=== PATIENT | male | born 1945 | race Caucasian/White ===

== ENCOUNTER → 2016-10-21 | Day surgery (SDC) | payer OTHER ==
[2016-10-12 12:36] VITALS: Ht 180.3 cm; Wt 86.4 kg
[~2016-10-21] VITALS: Ht 180.3 cm; Wt 86.4 kg
[~2016-10-21] MED LIST: AMT50 PO; CALC1CHW43 PO; FENTANYL CITRATE INJ 50 MCG/1 ML 2 ML VIAL ONE; FERR1TAB23 PO; FLUT0.15; LIDOCAINE HCL 2% 2 ML VIAL (20MG/ML) ONE; LOVA20TA4 PO; PRLSR20 PO; PROPOFOL IV EMULSION 10 MG/ML 20 ML VIAL IV ONE; SUMA50TA15 PO; TIMO1SOL6 OPB
--- NOTE | 2016-10-21 15:52 | Endo History and Physical ---
History & Physical Date of Service: Oct 21, 2016. Chief Complaint: anemia Referring Physician: Dr Marie History of Present Illness 71 yo CM who presents for EGD secondary to anemia. Past Surgical History Hx Cardiac Surgery: No Hx Internal Defibrillator: No Hx Pacemaker: No Hx Abdominal Surgery: No Hx of Implantable Prosthesis: No Hx Post-Op Nausea and Vomiting: No Hx Cancer Surgery: Yes (SKIN CANCER REMOVALS) Hx Thoracic Surgery: No Hx Orthopedic: No Hx Urinary Tract Surgery: No Family History IBD Social History Smoking Status: Never Smoker Hx Substance Use: No Hx Alcohol Use: No Allergies Coded Allergies: No Known Allergies (Unverified , 10/12/16) Current Medications Reported Home Medications Medications Dose Route/Sig Max Daily Dose Days Date Category Imitrex (Sumatriptan Succinate) 50 Mg Tab 50 Mg PO UD PRN 10/12/16 Reported Tums E-X 750 (Calcium Carbonate (Antacid)) 750 Mg Chw 1 Tab PO UD PRN 10/12/16 Reported Iron (Ferrous Sulfate) 325 Mg Tab 325 Mg PO BID 08/05/16 Reported Flonase Allergy Relief (Fluticasone Propionate (Nasal)) 50 Mcg/Act Spr 1 [place] NA DAILY PRN 06/22/16 Reported Betimol 0.25% Oph (Timolol Hemihydrate 0.25% Oph) 0.25 % Liza 1 Drop OPB QAM 06/22/16 Reported Mevacor (Lovastatin) 20 Mg Tab 20 Mg PO QAM 06/22/16 Reported Prilosec (Omeprazole) 20 Mg Capcr 20 Mg PO QAM 06/22/16 Reported Elavil (Amitriptyline HCl) 50 Mg Tab 0.5 Tab PO HS 11/25/07 Reported Vital Signs Weight (Kilograms): 86.36 Height (Feet): 5 Height (Inches): 11 Date Time Temp Pulse Resp B/P Pulse Ox O2 Delivery O2 Flow Rate FiO2 10/21/16 15:03 36.7 67 20 144/89 96 Room Air Physical Exam General Appearance: WD/WN, no apparent distress Respiratory/Chest: Auscultation: breath sounds normal Cardiovascular: Heart Auscultation: RRR Abdomen: Bowel Sounds: normal Inspection & Palpation: soft, non-distended, no tenderness, guarding & rebound Assessment and Plan Assessment: 71 yo CM who presents for EGD secondary to anemia. Plan: Proceed with EGD
--- NOTE | 2016-10-21 16:15 | Anesthesiology Progress Note ---
Anesthesia Post Op Note Date & Time Oct 21, 2016 at 16:14 Vital Signs Pain Intensity: 0 Vital Signs Past 12 Hours Date Time Temp Pulse Resp B/P Pulse Ox O2 Delivery O2 Flow Rate FiO2 10/21/16 16:05 63 16 103/61 95 Room Air 10/21/16 15:03 36.7 67 20 144/89 96 Room Air Notes Mental Status: alert / awake / arousable, participated in evaluation Pt Amnestic to Procedure: Yes Nausea / Vomiting: adequately controlled Pain: adequately controlled Airway Patency, RR, SpO2: stable & adequate BP & HR: stable & adequate Hydration State: stable & adequate Anesthetic Complications: no major complications apparent
[2016-10-21 16:34] VITALS: BP 121/82; PULSE 59; O2SAT 97
--- NOTE | 2016-10-21 16:40 | Discharge Instructions ---
Endoscopy Patient Instructions Date / Procedure(s) Performed Oct 21, 2016. EGD Allergy Information Coded Allergies: No Known Allergies (Unverified , 10/12/16) Discharge Date / Findings Oct 21, 2016. Gastritis s/p biopsies Hiatal hernia Biopsies of esophagus Provider Instructions Activity Restrictions - No exercising or heavy lifting for 24 hours. - Do not drink alcohol the day of the procedure. - Do not drive a car or operate machinery until the day after the procedure. - Do not make any important decisions or sign important papers in 24 hours after the procedure. Following Day: - Return to full activity which may include returning to work/school. Diet Start your diet with liquids and light foods (jello, soup, juice, toast). Then eat your usual diet if not nauseated. Treatment For Common After Affects For mild abdominal pain, bloating, or excessive gas: - Rest - Eat lightly - Lie on right side Follow-Up Information Follow-up with Dr Marie as scheduled Anesthesia Information What You Should Know You have had a procedure that required some medicine to reduce anxiety and discomfort. This treatment is called moderate sedation. After receiving the treatment, you may be sleepy, but you will be able to breathe on your own. The effects of the treatment may last for several hours. Follow these instructions along with Activity/Diet recommendations noted above: * Do NOT do anything where dizziness or clumsiness would be dangerous. * Rest quietly at home today, then you can be up and about tomorrow. * Have a responsible person stay with you the rest of today. * You may have had an I.V. today. If so, you may take the dressing off later today. Recommendations Call your doctor if: * Trouble breathing * Continuous vomiting for more than 24 hours * Temperature above 101 degrees * Severe abdominal pain or bloating * Pain not relieved by pain medicine ordered * There is increased drainage or redness from any incision * A large amount of rectal bleeding greater than 2-3 tablespoons. (If you had a polyp/s removed or have hemorrhoids, a small amount of blood - from the rectum is to be expected.) * You have any unanswered questions or concerns. IN THE EVENT OF A SERIOUS EMERGENCY, GO TO THE NEAREST EMERGENCY ROOM Your discharge instructions were prepared by provider Renato Bonner. Patient Instructions Signature Page [place] Su Patient (or Guardian) Signature/Date: I have read and understand the instructions given to me by my caregivers. Caregiver/RN/Doctor Signature/Date: The above-named patient and/or guardian has received patient instructions on this date. + Original Patient Signature Page (only) stays with chart. Please make copy for patient.
--- NOTE | 2016-10-21 16:56 | GI REPORT ---
Procedure Date: 10/21/2016 3:46 PM Procedure: Upper GI endoscopy Indications: Iron deficiency anemia Medicines: Monitored Anesthesia Care Complications: No immediate complications. Estimated Blood Loss: Estimated blood loss: none. Procedure: Pre-Anesthesia Assessment: - Prior to the procedure, a History and Physical was performed, and patient medications and allergies were reviewed. The patient's tolerance of previous anesthesia was also reviewed. The risks and benefits of the procedure and the sedation options and risks were discussed with the patient. All questions were answered, and informed consent was obtained. Prior Anticoagulants: The patient has taken no previous anticoagulant or antiplatelet agents. ASA Grade Assessment: II - A patient with mild systemic disease. After reviewing the risks and benefits, the patient was deemed in satisfactory condition to undergo the procedure. After obtaining informed consent, the endoscope was passed under direct vision. Throughout the procedure, the patient's blood pressure, pulse, and oxygen saturations were monitored continuously. The scope was introduced through the mouth, and advanced to the second part of duodenum. The upper GI endoscopy was accomplished without difficulty. The patient tolerated the procedure well. Findings: The Z-line was irregular. Biopsies were taken with a cold forceps for histology. A small hiatus hernia was present. Localized mild inflammation characterized by erythema was found in the gastric antrum. Biopsies were taken with a cold forceps for histology. The examined duodenum was normal. Impression: - Z-line irregular. Biopsied. - Small hiatus hernia. - Gastritis. Biopsied. - Normal examined duodenum. Recommendation: - Resume previous diet. - Continue present medications. - Await pathology results. - Return to primary care physician as previously scheduled. Renato Bonner, DO 10/21/2016 4:55:39 PM This report has been signed electronically. Note Initiated On: 10/21/2016 3:46 PM I attest to the content of the Intraoperative Record and orders documented therein, exceptions below
== END | disposition home or self-care (01) ==
LOC: C.GI 14:19
PROVIDERS: ATTEND Physician Assistant Medical
DX: D50.9 Iron deficiency anemia, unspecified (principal); K29.70 Gastritis, unspecified, without bleeding; K44.9 Diaphragmatic hernia without obstruction or gangrene; Z83.79 Family history of other diseases of the digestive system

== ENCOUNTER → 2016-10-28 | Outpatient (CLI) | payer OTHER ==
[~2016-10-28] MED LIST changes: -FENTANYL CITRATE INJ 50 MCG/1 ML 2 ML VIAL ONE; -LIDOCAINE HCL 2% 2 ML VIAL (20MG/ML) ONE; -PROPOFOL IV EMULSION 10 MG/ML 20 ML VIAL IV ONE
[2016-10-28 12:51] LABS: BASO % 0.6 %; BASO ABS # 0.04 K/uL (0-0.2); COMPLETE YES; EOS % 3.1 %; FERRITIN 21.9 ng/ml (8.0-388.0); IG% 0.1 %; LYMPH % 31.2 %; LYMPH ABS # 2.25 K/uL (1.2-3.4); MEAN CELL VOLUME 85.3 fL (80-100); MEAN CORPUSCULAR HEMOGLOBIN 29.6 pg (25-34); MEAN CORPUSCULAR HGB CONC 34.8 g/dl (32-36); MEAN PLATELET VOLUME 10.8 fL (7.4-10.4); MONO % 11.4 %; NEUT % 53.6 %; PLATELET COUNT 216 K/uL (130-400); RED BLOOD COUNT 4.69 M/uL (4.7-6.1); WHITE BLOOD COUNT 7.21 K/uL (4.8-10.8)
== END | disposition home or self-care (01) ==
LOC: C.LABBFT 08:25
PROVIDERS: ATTEND Physician Assistant Medical
DX: D64.9 Anemia, unspecified (principal)

== ENCOUNTER → 2016-11-02 | Outpatient (CLI) | payer OTHER ==
[2016-11-02 17:51] LABS: ALT/SGPT 25 U/L (12-78); BLOOD UREA NITROGEN 29 mg/dl (7-18); CALCIUM 9.1 mg/dl (8.5-10.1); CARBON DIOXIDE 28 mmol/L (21-32); CHLORIDE 107 mmol/L (98-107); CHOLESTEROL 144 mg/dl (0-200); GLUCOSE 65 mg/dl (70-99); POTASSIUM 3.5 mmol/L (3.5-5.1); SODIUM 143 mmol/L (136-145); TRIGLYCERIDES 136 mg/dl (0-150); VERY LOW DENSITY LIPOPROT CALC 27 mg/dl
[2016-11-02 17:54] LABS: ALB/GLOB RATIO 1.1 (0.9-2); ALKALINE PHOSPHATASE 62 U/L (45-117); AST/SGOT 21 U/L (15-37); CHOLESTEROL/HDL RATIO 2.6; HDL CHOLESTEROL 55 mg/dl; LDL CHOLESTEROL CALCULATED 62 mg/dl
[2016-11-02 18:20] LABS: ESTIMATED AVERAGE GLUCOSE 128 mg/dl; HA1C FLAG Normal (Normal)
--- NOTE | 2016-11-08 10:29 | CODING QUERY MEDICAL NECESSITY ---
SUPPORTING DIAGNOSIS NEEDED A supporting diagnosis is required for the test/procedure performed on this patient in order for us to be reimbursed by the patient's insurance. Please provide a supporting diagnosis for the following test/procedure listed below next to the test name along with your signature. *If there is no additional diagnosis for this patient that would support the following test/procedure please document that below next to the test/procedure. Test(s)/Procedure(s) that require a supporting diagnosis: * GLYCATED HEMOGLOBIN DIAGNOSIS: * DOS: 11/02/16 Provider Signature: Date: Thank you Ghada [facility] Information Management Once completed, please kindly fax back to [phone] For questions please call [phone]
== END | disposition home or self-care (01) ==
LOC: C.LABBFT 11:35
PROVIDERS: ATTEND Physician Assistant Medical
DX: E78.5 Hyperlipidemia, unspecified (principal); E11.9 Type 2 diabetes mellitus without complications

== ENCOUNTER → 2017-01-17 | Outpatient (CLI) | payer OTHER ==
[2017-01-17 12:46] LABS: HEMATOCRIT 35.6 % (42-52); MEAN CELL VOLUME 88.3 fL (80-100); MEAN CORPUSCULAR HEMOGLOBIN 30.8 pg (25-34); MEAN CORPUSCULAR HGB CONC 34.8 g/dl (32-36); PLATELET COUNT 214 K/uL (130-400); RED BLOOD COUNT 4.03 M/uL (4.7-6.1); WHITE BLOOD COUNT 6.57 K/uL (4.8-10.8)
[2017-01-17 12:49] LABS: BASO ABS # 0.06 K/uL (0-0.2); BASOPHIL % 0.9 % (0-2); COMPLETE YES; EOSINOPHIL % 3.5 %; LYMPH ABS # 1.33 K/uL (1.2-3.4); LYMPHOCYTE % 20.2 %; NEUTROPHILS % 69.3 %
== END | disposition home or self-care (01) ==
LOC: C.LABBFT 08:41
PROVIDERS: ATTEND Physician Assistant Medical
DX: D64.9 Anemia, unspecified (principal)

== ENCOUNTER → 2017-05-10 | Outpatient (CLI) | payer OTHER ==
[2017-05-10 12:29] LABS: BASO % 0.4 %; BASO ABS # 0.03 K/uL (0-0.2); COMPLETE YES; EOS % 2.5 %; HEMATOCRIT 43.3 % (42-52); IG% 0.3 %; LYMPH % 28.6 %; LYMPH ABS # 2.17 K/uL (1.2-3.4); MEAN CELL VOLUME 88.7 fL (80-100); MEAN CORPUSCULAR HEMOGLOBIN 30.3 pg (25-34); MEAN CORPUSCULAR HGB CONC 34.2 g/dl (32-36); MEAN PLATELET VOLUME 11.4 fL (7.4-10.4); MONO % 7.2 %; PLATELET COUNT 213 K/uL (130-400); RED BLOOD COUNT 4.88 M/uL (4.7-6.1)
[2017-05-10 13:17] LABS: TOTAL IRON BINDING CAPACITY 309 mcg/dl (250-450)
== END | disposition home or self-care (01) ==
LOC: C.LABBFT 07:48
PROVIDERS: ATTEND Internal Medicine
DX: D64.9 Anemia, unspecified (principal)

== ENCOUNTER → 2017-09-16 | Outpatient (CLI) | payer OTHER | END | disposition home or self-care (01) | LOC: C.LABBFT 10:20 | PROVIDERS: ATTEND Physician Assistant Medical | DX: R39.9 Unspecified symptoms and signs involving the genitourinary system (principal) ==

== ENCOUNTER → 2017-11-22 | Outpatient (CLI) | payer OTHER ==
[2017-11-22 16:46] LABS: BASO % 0.3 %; BASO ABS # 0.02 K/uL (0-0.2); EOS % 1.4 %; HEMATOCRIT 41.9 % (42-52); HEMOGLOBIN 14.6 g/dL (14.0-18.0); IG# 0.02 K/uL (0.00-0.02); LYMPH % 28.5 %; MEAN CORPUSCULAR HGB CONC 34.8 g/dl (32-36); MEAN PLATELET VOLUME 10.9 fL (7.4-10.4); MONO % 9.6 %; MONO ABS # 0.71 K/uL (0.11-0.59); NEUT % 59.9 %; NEUT ABS # 4.43 K/uL (1.4-6.5); PLATELET COUNT 219 K/uL (130-400); RED CELL DISTRIBUTION WIDTH CV 12.6 % (11.5-14.5); RED CELL DISTRIBUTION WIDTH SD 41.2 fL (36.4-46.3); WHITE BLOOD COUNT 7.38 K/uL (4.8-10.8)
[2017-11-22 17:05] LABS: ALBUMIN 3.8 gm/dl (3.4-5.0); ALT/SGPT 21 U/L (12-78); AST/SGOT 18 U/L (15-37); BLOOD UREA NITROGEN 16 mg/dl (7-18); CARBON DIOXIDE 27 mmol/L (21-32); CREATININE 1.19 mg/dl (0.60-1.40); GLUCOSE 99 mg/dl (70-99); POTASSIUM 4.2 mmol/L (3.5-5.1); SODIUM 140 mmol/L (136-145)
[2017-11-22 17:07] LABS: ALKALINE PHOSPHATASE 59 U/L (45-117); CHOLESTEROL 130 mg/dl (0-200); LDL CHOLESTEROL CALCULATED 55 mg/dl; TOTAL PROTEIN 7.2 gm/dl (6.4-8.2)
[2017-11-22 17:18] LABS: CREATININE RANDOM URINE 56.9 mg/dl
[2017-11-23 06:22] LABS: HEMOGLOBIN A1C 6.3 % (4.5-5.6)
== END | disposition home or self-care (01) ==
LOC: C.LABBFT 15:37
PROVIDERS: ATTEND Internal Medicine
DX: E11.9 Type 2 diabetes mellitus without complications (principal); E78.5 Hyperlipidemia, unspecified; D64.9 Anemia, unspecified

== ENCOUNTER → 2017-11-25 | Outpatient (CLI) | payer OTHER ==
--- NOTE | 2017-11-25 11:55 | DIAGNOSTIC IMAGING REPORT ---
CHEST 2 VIEWS ROUTINE HISTORY: R05 Cough [id number] COMPARISON: None. FINDINGS: The lungs are clear. Cardiac silhouette is normal in size. No pleural effusions. No pneumothorax. IMPRESSION: No acute process. Electronically signed by: Rod Friedman M.D. 11/25/2017 11:54 AM Dictated Date/Time: 11/25/2017 11:51 AM
== END | disposition home or self-care (01) ==
LOC: C.RAD1850 11:45
PROVIDERS: ATTEND Internal Medicine
DX: R05 Cough (principal)

== ENCOUNTER 2020-03-01 11:39 | Observation (INO) ==
[2020-03-01] MEDS ORDERED: SODIUM CHLORIDE 0.9% 500 ML IV SCH (12:15)
--- NOTE | 2020-03-01 12:21 | Emergency Department Note ---
Impression & Plan TIA (transient ischemic attack), Dizziness ED Provider Note NAME: SUMIT GALE AGE: 74 SEX: M : 1945 ARRIVES VIA: Walk-In INFORMANT: Patient, ED PROVIDER(S): Jass Pierson DO CHIEF COMPLAINT: Weakness HPI: The patient is a 74-year-old male who presented to the emergency department for an evaluation of weakness. The patient states that he has had intermittent episodes of having difficulty ambulating when he goes from sitting to standing. He states that when he drives a long period and then gets out of the car to go to the bathroom he notices that he has been having dizziness upon standing this seems to have changed though over the last few days as the patient is now noticing that he is having unilateral weakness specifically on his right side. This is happened approximately 5 times over the last 1 to 2 days. The most recent one was this morning. He notices no headache. He denies having any chest pain or difficulty breathing. He denies having any nausea or vomiting. He denies having any swelling in the legs or pain in the legs. He has a follow- up appoint with his doctor on Tuesday for the symptoms. He states he has been compliant with his medications. His significant other presented to the emergency department with him and states that he was mowing the grass today when he started noticing he was having difficulty speaking. When he came into the house his states that he was drooling and his speech was very slurred. The symptoms have completely resolved at this time. ROS: See above HPI for pertinent positives & negatives. A total of 10 systems reviewed and were otherwise negative. PAST MEDICAL HISTORY: See Below PAST SURGICAL HISTORY: See Below FAMILY HISTORY: See Below SOCIAL HISTORY: See Below HOME MEDICATIONS: See Below ALLERGIES: See Below VITALS: See Below PHYSICAL EXAMINATION: GENERAL: Patient is awake alert in no acute distress patient is resting comfortably and showing no signs of anxiety EYES: The conjunctivae are clear. The pupils are round and reactive. EARS, NOSE, MOUTH AND THROAT: The nose is without any evidence of any deformity. Mucous membranes are moist. NECK: The neck is nontender and supple. RESPIRATORY: Normal respiratory effort is noted there is no evidence of wheezing rhonchi or rales CARDIOVASCULAR: Regular rate and rhythm noted there no murmurs rubs or gallops normal S1 normal S2. GASTROINTESTINAL: The abdomen is soft. Abdomen is nontender. MUSCULOSKELETAL/EXTREMITIES: There is no evidence of gross deformity full range of motion is noted in the hips and shoulders. SKIN: There is no obvious evidence of any rash. There are no petechiae, pallor or cyanosis noted. NEUROLOGIC: Patient is awake alert and oriented x3 strength is symmetric patellar reflexes are 2+ bilaterally MEDICAL DECISION MAKING: The patient is a 74-year-old male who presented to the emergency department for an evaluation of right-sided weakness. The right-sided weakness appears to be intermittent. He was having some problems with dizziness over the last few months and had a cardiac work-up which did not reveal a cause. The patient presents today because of 5 episodes of right-sided weakness which are intermittent and worsening on standing. Upon arrival to the emergency depar tment the patient is asymptomatic. I discussed the patient's laboratory and radiographic studies with him. He was found to have an abnormal CT of the brain as well as angiography of the brain which revealed abnormalities in the vertebral artery on the left. It is possible this may be related to the patient's presentation. He was treated with aspirin in the emergency department. His neurologic status did not decline while he was in the emergency department. I discussed the patient's laboratory and radiographic studies with the on-call [facility] neurologist as well as the [facility] hospitalist. They will evaluate the patient for further management and disposition. The patient was agreeable to this evaluation. Triage Nursing notes reviewed. Prior medical records reviewed Vital Signs: reviewed and remarkable for bradycardia Differential diagnosis: Infection, dehydration, metabolic abnormality, hypo/hyperglycemia, electrolyte disturbance, anemia, hypoxia, cardiac sources, intracerebral event, toxicologic, neurologic, as well as other pathologies. ER treatment provided: See below Diagnostics interpreted by me: ECG: EKG was obtained in the emergency department. My interpretation is normal sinus rhythm at 67 bpm. There is no ectopy. There is no acute ST segment abnormalities noted. This was compared to a tracing from October [id number]. No significant changes were noted. Cardiac Monitoring: An order was placed for continuous cardiac monitoring. The monitor shows a rate of 88 with sinus rhythm. Laboratory studies: As stated above and show below. Imaging studies: See below Consultation(s): 1400: I discussed this case with the [facility] neurologist, Dr. Junior. At this time she recommends aspirin loading and continued stroke work-up with MRI MRA of the brain and further stroke work-up including echocardiogram. ED COURSE: Procedures: none PDMP:reviewed and no issues Critical Care: None Past Med/Surg History Medical History Allergic rhinitis (Acute) Dilated aortic root (Acute) Gastroesophageal reflux disease (Acute) Hyperlipidemia (Acute) Lower back pain (Acute) Migraine headache (Acute) Mitral valve insufficiency and aortic valve insufficiency (Acute) Surgical History History of cataract surgery History of colonoscopy Hx of LASIK History of corneal lasik on CCD Family History Father Heart disease Stroke syndrome Mother Alzheimer disease Brother Parkinsons disease Social History Smoking Status: Never smoker Hx Alcohol Use: No Hx Substance Use: No Preferred Language: Tuvaluan Communication Ability: Effective marital status: Current Living Situation: Spouse current occupational status: employed current occupation: [id number] for [employer] Safe at Home: Yes Seatbelt Use: always Allergies Allergies Allergy/AdvReac Type Severity Reaction Status Date / Time No Known Allergies Allergy Mild Unverified 03/01/20 13:15 Home Meds Home Medications Medication Instructions Recorded Confirmed ferrous sulfate 325 mg (65 mg See Rx Instructions PO .COMPLEX 02/14/19 03/01/20 iron) tablet tab lovastatin 20 mg tablet 20 mg PO .COMPLEX tab 09/02/19 03/01/20 fluticasone propionate 50 2 sprays INTNAS DAILY PRN gm 09/24/19 03/01/20 mcg/actuation nasal spray,suspension Previous Rx's Medication Instructions Recorded blood sugar diagnostic #100 ea 02/14/19 lancets 33 gauge #100 ea 02/14/19 famotidine 20 mg tablet 20 mg PO BID PRN #180 tab 09/24/19 Results & Data (ED) Vital Signs Vital Signs - 24 hr 03/01/20 11:43 03/01/20 12:27 03/01/20 12:28 Temperature 36.4 C L Temperature Source Oral Pulse Rate - Lying 60 Pulse Rate - Sitting 68 Pulse Rate - Standing 65 Pulse Rate 69 69 59 L Pulse Rate from SpO2 Sensor Pulse Rhythm Regular Regular Pulse Strength Normal Respiratory Rate 16 16 21 Respiratory Effort / Characteristics Non-Labored Respiratory Depth Normal Respiratory Pattern Regular Blood Pressure - Lying 159/93 H Blood Pressure - Sitting 141/104 H Blood Pressure- Standing 134/87 Blood Pressure 144/88 H 159/93 H Blood Pressure Mean 106 118 Blood Pressure Position Sitting Pulse Oximetry 98 98 Oxygen Delivery Method Room Air Room Air Sepsis Recent Fever Within 48 Hours No Sepsis New/Unexplained Change in Mental Status N/A Sepsis Action Taken by Nursing No Action Required 03/01/20 12:29 03/01/20 12:30 03/01/20 13:30 Temperature Temperature Source Pulse Rate - Lying Pulse Rate - Sitting Pulse Rate - Standing Pulse Rate 63 66 53 L Pulse Rate from SpO2 Sensor 53 L Pulse Rhythm Pulse Strength Respiratory Rate 19 18 18 Respiratory Effort / Characteristics Respiratory Depth Respiratory Pattern Blood Pressure - Lying Blood Pressure - Sitting Blood Pressure- Standing Blood Pressure 141/104 H 134/87 134/85 Blood Pressure Mean 116 95 112 Blood Pressure Position Pulse Oximetry 99 Oxygen Delivery Method Sepsis Recent Fever Within 48 Hours Sepsis New/Unexplained Change in Mental Status Sepsis Action Taken by [facility] Medications Current Medication List: was personally reviewed by me Laboratory Data Result diagrams: 03/01/20 12:17 03/01/20 12:17 Lab Results 03/01/20 03/01/20 03/01/20 Range/Units 12:17 12:17 12:17 WBC 7.48 (4.8-10.8) K/uL RBC 4.22 L (4.7-6.1) M/uL Hgb 13.1 L (14.0-18.0) g/dL POC Hgb (14.0-18.0) g/dl Hct 37.6 L (42-52) % POC Hct (42-52) % MCV 89.1 (80-100) fL MCH 31.0 (25-34) pg MCHC 34.8 (32-36) g/dL RDW Std Deviation 41.2 (36.4-46.3) fL RDW Coeff of Cas 12.8 (11.5-14.5) % Plt Count 189 (130-400) K/uL MPV 10.5 H (7.4-10.4) fL Immature Gran % (Auto) 0.1 % Neut % (Auto) 67.0 % Lymph % (Auto) 22.1 % [place] % (Auto) 8.4 % Eos % (Auto) 2.1 % Baso % (Auto) 0.3 % Neut # (Auto) 5.01 (1.4-6.5) K/uL Lymph # (Auto) 1.65 (1.2-3.4) K/uL [place] # (Auto) 0.63 H (0.11-0.59) K/uL Eos # (Auto) 0.16 (0-0.5) K/uL Baso # (Auto) 0.02 (0-0.2) K/uL Immature Gran # (Auto) 0.01 (0.00-0.02) K/uL PT 10.9 (9.0-12.0) Seconds INR 1.0 (0.9-1.1) APTT 25.1 (21.0-31.0) Seconds PTT Ratio 0.9 POC Sodium (135-144) mmol/L Sodium 142 (136-145) mmol/L POC Potassium (3.3-5.0) mmol/L Potassium 4.0 (3.5-5.1) mmol/L POC Chloride (101-112) mmol/L Chloride 111 H (98-107) mmol/L Carbon Dioxide 25 (21-32) mmol/L POC Total CO2 (24-31) mmol/L Anion Gap 6.0 (3-11) POC Anion Gap (16-25) mmol/L POC BUN (7-18) mg/dl BUN 27 H (7-18) mg/dl Creatinine 1.09 (0.6-1.4) mg/dl POC Creatinine (0.6-1.3) mg/dl Est Cr Clr Drug Dosing 64.3 ml/min Est GFR ( Amer) 77.6 Est GFR (Non-Af Amer) 67.0 BUN/Creatinine Ratio 24.9 H (10-20) Glucose 106 H (70-99) mg/dl POC Glucose (other) (70-99) mg/dl Calcium 8.2 L (8.5-10.1) mg/dl POC Ioniz Calcium Santos (1.12-1.32) mmol/l Magnesium 2.1 (1.8-2.4) mg/dl Total Bilirubin 0.5 (0.2-1) mg/dl AST 14 L (15-37) U/L ALT 20 (12-78) U/L Alkaline Phosphatase 56 (45-117) U/L Troponin I < 0.015 (0-0.045) ng/ml Total Protein 6.6 (6.4-8.2) gm/dl Albumin 3.6 (3.4-5.0) gm/dl Globulin 3.0 (2.5-4.0) gm/dl Albumin/Globulin Ratio 1.2 (0.9-2) TSH 0.832 (0.300-4.500) uIu/ml Urine Color Urine Appearance (Clear) Urine pH (4.5-7.5) Ur Specific [place] (1.000-1.030) Urine Protein (Negative) Urine Glucose (UA) (Negative) Urine Ketones (Negative) Urine Blood (Negative) Urine Nitrite (Negative) Urine Bilirubin (Negative) Urine Urobilinogen (Negative) Ur Leukocyte Esterase (Negative) 03/01/20 03/01/20 Range/Units 12:17 12:27 WBC (4.8-10.8) K/uL RBC (4.7-6.1) M/uL Hgb (14.0-18.0) g/dL POC Hgb 12.2 L (14.0-18.0) g/dl Hct (42-52) % POC Hct 36 L (42-52) % MCV (80-100) fL MCH (25-34) pg MCHC (32-36) g/dL RDW Std Deviation (36.4-46.3) fL RDW Coeff of Cas (11.5-14.5) % Plt Count (130-400) K/uL MPV (7.4-10.4) fL Immature Gran % (Auto) % Neut % (Auto) % Lymph % (Auto) % [place] % (Auto) % Eos % (Auto) % Baso % (Auto) % Neut # (Auto) (1.4-6.5) K/uL Lymph # (Auto) (1.2-3.4) K/uL [place] # (Auto) (0.11-0.59) K/uL Eos # (Auto) (0-0.5) K/uL Baso # (Auto) (0-0.2) K/uL Immature Gran # (Auto) (0.00-0.02) K/uL PT (9.0-12.0) Seconds INR (0.9-1.1) APTT (21.0-31.0) Seconds PTT Ratio POC Sodium 139 (135-144) mmol/L Sodium (136-145) mmol/L POC Potassium 4.0 (3.3-5.0) mmol/L Potassium (3.5-5.1) mmol/L POC Chloride 106 (101-112) mmol/L Chloride (98-107) mmol/L Carbon Dioxide (21-32) mmol/L POC Total CO2 23 L (24-31) mmol/L Anion Gap (3-11) POC Anion Gap 15.0 L (16-25) mmol/L POC BUN 26 H (7-18) mg/dl BUN (7-18) mg/dl Creatinine (0.6-1.4) mg/dl POC Creatinine 1.0 (0.6-1.3) mg/dl Est Cr Clr Drug Dosing ml/min Est GFR ( Amer) Est GFR (Non-Af Amer) BUN/Creatinine Ratio (10-20) Glucose (70-99) mg/dl POC Glucose (other) 103 H (70-99) mg/dl Calcium (8.5-10.1) mg/dl POC Ioniz Calcium Santos 1.16 (1.12-1.32) mmol/l Magnesium (1.8-2.4) mg/dl Total Bilirubin (0.2-1) mg/dl AST (15-37) U/L ALT (12-78) U/L Alkaline Phosphatase (45-117) U/L Troponin I (0-0.045) ng/ml Total Protein (6.4-8.2) gm/dl Albumin (3.4-5.0) gm/dl Globulin (2.5-4.0) gm/dl Albumin/Globulin Ratio (0.9-2) TSH (0.300-4.500) uIu/ml Urine Color Yellow Urine Appearance Clear (Clear) Urine pH 7.5 (4.5-7.5) Ur Specific [place] 1.009 (1.000-1.030) Urine Protein Negative (Negative) Urine Glucose (UA) Negative (Negative) Urine Ketones Negative (Negative) Urine Blood Negative (Negative) Urine Nitrite Negative (Negative) Urine Bilirubin Negative (Negative) Urine Urobilinogen Negative (Negative) Ur Leukocyte Esterase Negative (Negative) Administered Medications Ioversol (Optiray 320 125ml) 120 ml IV ONCE PRN PRN Reason: Interaction Checking Stop: 03/05/20 13:05 Last Admin: 03/01/20 13:06 Dose: 120 ml Documented by: [id number] Discontinued Medications Sodium Chloride (Nss) 500 mls @ 999 mls/hr IV .Q31M CONCHITA Stop: 03/01/20 12:45 Last Infusion: 03/01/20 13:43 Dose: 0 mls/hr Documented by: [id number] Admin: 03/01/20 12:32 Dose: 999 mls/hr Documented by: [id number] Imaging Data Radiologist's Impression: CT angio neck with con, CT angio head w con CLINICAL HISTORY: 74 years-old Male with right sided SS. Acute strokelike symptoms COMPARISON STUDY: Head CT of same day TECHNIQUE: Following the IV administration of 1 20 mL of Optiray 320, CT angiogram of the head and neck was performed from the aortic arch to the skull apex. Images are reviewed in the axial, sagittal, and coronal planes. 3-D MIPS images are created and assessed. IV contrast was administered without complication. All measurements were calculated based on NASCET criteria. A dose lowering technique was utilized adhering to the principles of ALARA. CT DOSE: 1286.70 mGy.cm FINDINGS: The opacified pulmonary arterial tree is unremarkable. Unremarkable thoracic aortic arch. Patency of the innominate artery and image bilateral subclavian arteries. The study is mildly motion degraded. The bilateral common carotid arteries are widely patent. Mild mixed plaque of the carotid bulbs and proximal internal carotid arteries without high-grade stenosis. The middle and anterior cerebral arteries are patent. Diminutive right A1 segment, likely developmental. Anterior to indicating artery appears normal. Cerebral venous sinuses are patent. There is no abnormal intracranial enhancement. Dominant right vertebral artery is widely patent. Diminutive left vertebral artery is likely developmental. The distal left vertebral artery is markedly diminutive with no significant flow seen ascending from the level of C2 distally. The left PICA appears to be fed through a collateral vessel. Patent diminutive basilar artery. Moderate luminal narrowing of the distal basilar artery. origin of the right posterior cerebral artery. Moderate luminal narrowing of the left P1 segment on image 96 series 5. Lung apices are clear. No pneumothorax. Unremarkable soft tissues. Degenerative changes of the spine. IMPRESSION: 1. Developmentally diminutive left vertebral artery with likely chronic high- grade stenosis versus occlusion of the distal V2, V3 and V4 segments. 2. Moderate luminal narrowing of the basilar and left posterior cerebral artery. 3. Otherwise unremarkable CTA of the head and neck. ACT 112: Negative or not required by law. The above report was generated using voice recognition software. It may contain grammatical, syntax or spelling errors. Electronically signed by: Ga Bowles M.D. 03/01/2020 1:38 PM Dictated: 03/01/20 1330 Transcribed: 03/01/201329 CT head/brain wo con CLINICAL HISTORY: 74 years-old Male with right sided SS. Acute strokelike symptoms TECHNIQUE: Multiple axial CT images of the head were obtained without contrast. A dose lowering technique was utilized adhering to the principles of ALARA. COMPARISON: CTA head neck of same day FINDINGS: No acute intracranial hemorrhage, midline shift, intracranial mass, hydrocephalus, territorial ischemia or abnormal extra-axial collection. Mild age-related involutional changes. There is an ill-defined 4 mm hypodensity of the posterior mid left cerebellar hemisphere with additional subcentimeter hypodensity of the medial left cerebellar hemisphere and image 7 series 2. Patchy white matter hypodensities of the cerebral hemispheres suggest chronic microvascular ischemic disease. The calvarium is intact. Prior bilateral lens replacement. The paranasal sinuses, mastoid air cells, and middle ear cavities are clear. IMPRESSION: 1. No acute intracranial hemorrhage, midline shift or acute territorial infarct. 2. Ill-defined hypodensities of the left cerebellar hemisphere are suggestive of age-indeterminate likely remote infarcts. ACT 112: Negative or not required by law. The above report was generated using voice recognition software. It may contain grammatical, syntax or spelling errors. Electronically signed by: Ga Bowles M.D. 03/01/2020 1:23 PM Dictated: 03/01/20 1318 Transcribed: 03/01/20 131 XR chest 1V portable HISTORY: 74 years-old Male weakness acute weakness COMPARISON: Chest radiographs 11/25/2017 TECHNIQUE: Portable AP view of the chest FINDINGS: Cardiomediastinal and hilar silhouettes are within normal limits. There is no pneumothorax, pleural effusion, airspace consolidation or overt pulmonary edema. Degenerative changes of the shoulders and spine. IMPRESSION: No acute process. ACT 112: Negative or not required by law. The above report was generated using voice recognition software. It may contain grammatical, syntax or spelling errors. Electronically signed by: Ga Bowles M.D. 03/01/2020 12:34 PM Dictated: 03/01/20 1233 Transcribed: 03/01/20 1233 Blood Pressure Blood Pressure Findings: Normal blood pressure Discharge Plan Visit Data Chief Complaint: Syncope Stated Complaint: PASSING OUT, SLURRED SPEECH, LEGS GIVING OUT ED Provider: Jass Pierson Discharge Problem: TIA (transient ischemic attack), Dizziness Patient Disposition: Being Evaluated by Hospitalist Condition: Good Forms Stand Alone Forms: [facility] [employer] Prescriptions Prescriptions: No Action ferrous sulfate 325 mg (65 mg iron) tablet See Rx Instructions PO .COMPLEX RF: 0 (DME) OneTouch Verio test strips strip See Dose Instructions .ROUTE .MEDSUPPLY Qty: 100 RF: 5 (DME) lancets [OneTouch Delica Lancets] 33 gauge misc See Dose Instructions .ROUTE .MEDSUPPLY Qty: 100 RF: 5 lovastatin 20 mg tablet 20 mg PO .COMPLEX RF: 0 fluticasone propionate 50 mcg/actuation spray,suspension 2 sprays INTNAS DAILY PRN (Reason: Allergy Symptoms) RF: 0 famotidine 20 mg tablet 20 mg PO BID PRN (Reason: GERD) Qty: 180 RF: 3 Referrals Referrals: Lukas Marie MD [Primary Care Provider] -
[2020-03-01 12:31] LABS: Appearance Urine Clear (Clear); Basophils # (auto) 0.02 K/uL (0-0.2); Basophils % (auto) 0.3 %; Bilirubin Urine Negative (Negative); Blood Urine Negative (Negative); Color Urine Yellow; Eosinophils # (auto) 0.16 K/uL (0-0.5); Eosinophils % (auto) 2.1 %; Glucose Urine UA Negative (Negative); Hematocrit (blood only) 37.6 % (42-52); Hemoglobin 13.1 g/dL (14.0-18.0); Immature Granulocytes # (auto) 0.01 K/uL (0.00-0.02); Immature Granulocytes % (auto) 0.1 %; Ketones Urine Negative (Negative); Leukocyte Esterase Urine Negative (Negative); Lymphocytes # (auto) 1.65 K/uL (1.2-3.4); Lymphocytes % (auto) 22.1 %; Mean Corpuscular Hgb Conc 34.8 g/dL (32-36); Mean Corpuscular Volume 89.1 fL (80-100); Mean Platelet Volume 10.5 fL (7.4-10.4); Monocytes # (auto) 0.63 K/uL (0.11-0.59); Monocytes % (auto) 8.4 %; Neutrophils # (auto) 5.01 K/uL (1.4-6.5); Nitrite Urine Negative (Negative); Platelet Count 189 K/uL (130-400); Protein Urine Negative (Negative); RDW Coefficient of Variation 12.8 % (11.5-14.5); RDW Standard Deviation 41.2 fL (36.4-46.3); Red Blood Count 4.22 M/uL (4.7-6.1); Specific Gravity Urine 1.009 (1.000-1.030); Urobilinogen Urine Negative (Negative); White Blood Count 7.48 K/uL (4.8-10.8); pH Urine 7.5 (4.5-7.5)
--- NOTE | 2020-03-01 12:35 | XRay Report ---
XR chest 1V portable HISTORY: 74 years-old Male weakness acute weakness COMPARISON: Chest radiographs 11/25/2017 TECHNIQUE: Portable AP view of the chest FINDINGS: Cardiomediastinal and hilar silhouettes are within normal limits. There is no pneumothorax, pleural e ffusion, airspace consolidation or overt pulmonary edema. Degenerative changes of the shoulders and s pine. IMPRESSION: No acute process. ACT 112: Negative or not required by law. The above report was generated using voice recognition software. It may contain grammatical, syntax o r spelling errors. Electronically signed by: Ga Bowles M.D. 03/01/2020 12:34 PM
[2020-03-01 12:39] LABS: iSTAT Hemoglobin 12.2 g/dl (14.0-18.0); iSTAT Ionized Calcium 1.16 mmol/l (1.12-1.32)
[2020-03-01 12:44] LABS: Partial Thromboplastin Ratio 0.9; Partial Thromboplastin Time 25.1 Seconds (21.0-31.0); Prothrombin Time 10.9 Seconds (9.0-12.0)
[2020-03-01 12:48] LABS: Alanine Aminotransferase 20 U/L (12-78); Albumin Level 3.6 gm/dl (3.4-5.0); Aspartate Aminotransferase 14 U/L (15-37); BUN Creatinine Ratio 24.9 (10-20); Blood Urea Nitrogen 27 mg/dl (7-18); Calcium 8.2 mg/dl (8.5-10.1); Carbon Dioxide 25 mmol/L (21-32); Chloride 111 mmol/L (98-107); Creatinine Clr Calc Pharmacy 64.3 ml/min; Est GFR (African American) 77.6; Glucose 106 mg/dl (70-99); Magnesium 2.1 mg/dl (1.8-2.4); Sodium 142 mmol/L (136-145)
[2020-03-01 12:58] LABS: Albumin Globulin Ratio 1.2 (0.9-2); Alkaline Phosphatase 56 U/L (45-117); Bilirubin,Total 0.5 mg/dl (0.2-1); Thyroid Stimulating Hormone 0.832 uIu/ml (0.300-4.500); Total Protein 6.6 gm/dl (6.4-8.2); Troponin I < 0.015 ng/ml (0-0.045)
[2020-03-01] MEDS ORDERED: OPTIRAY 320 125ml IV PRN (13:06)
--- NOTE | 2020-03-01 13:25 | CT Scan Report ---
CT head/brain wo con CLINICAL HISTORY: 74 years-old Male with right sided SS. Acute strokelike symptoms TECHNIQUE: Multiple axial CT images of the head were obtained without contrast. A dose lowering tech nique was utilized adhering to the principles of ALARA. COMPARISON: CTA head neck of same day FINDINGS: No acute intracranial hemorrhage, midline shift, intracranial mass, hydrocephalus, territorial ischem ia or abnormal extra-axial collection. Mild age-related involutional changes. There is an ill-defined 4 mm hypodensity of the posterior mid left cerebellar hemisphere with additional subcentimeter hypod ensity of the medial left cerebellar hemisphere and image 7 series 2. Patchy white matter hypodensiti es of the cerebral hemispheres suggest chronic microvascular ischemic disease. The calvarium is intact. Prior bilateral lens replacement. The paranasal sinuses, mastoid air cells, and middle ear cavities are clear. IMPRESSION: 1. No acute intracranial hemorrhage, midline shift or acute territorial infarct. 2. Ill-defined hypodensities of the left cerebellar hemisphere are suggestive of age-indeterminate li amol remote infarcts. ACT 112: Negative or not required by law. The above report was generated using voice recognition software. It may contain grammatical, syntax o r spelling errors. Electronically signed by: Ga Bowles M.D. 03/01/2020 1:23 PM
--- NOTE | 2020-03-01 13:40 | CT Scan Report ---
CT angio neck with con, CT angio head w con CLINICAL HISTORY: 74 years-old Male with right sided SS. Acute strokelike symptoms COMPARISON STUDY: Head CT of same day TECHNIQUE: Following the IV administration of 1 20 mL of Optiray 320, CT angiogram of the head and ne ck was performed from the aortic arch to the skull apex. Images are reviewed in the axial, sagittal, and coronal planes. 3-D MIPS images are created and assessed. IV contrast was administered without co mplication. All measurements were calculated based on NASCET criteria. A dose lowering technique was utilized adhering to the principles of ALARA. CT DOSE: 1286.70 mGy.cm FINDINGS: The opacified pulmonary arterial tree is unremarkable. Unremarkable thoracic aortic arch. Patency of the innominate artery and image bilateral subclavian arteries. The study is mildly motion degraded. T he bilateral common carotid arteries are widely patent. Mild mixed plaque of the carotid bulbs and pr oximal internal carotid arteries without high-grade stenosis. The middle and anterior cerebral arteri es are patent. Diminutive right A1 segment, likely developmental. Anterior to indicating artery appea rs normal. Cerebral venous sinuses are patent. There is no abnormal intracranial enhancement. Dominan t right vertebral artery is widely patent. Diminutive left vertebral artery is likely developmental. The distal left vertebral artery is markedly diminutive with no significant flow seen ascending from the level of C2 distally. The left PICA appears to be fed through a collateral vessel. Patent diminut shama basilar artery. Moderate luminal narrowing of the distal basilar artery. origin of the righ t posterior cerebral artery. Moderate luminal narrowing of the left P1 segment on image 96 series 5. Lung apices are clear. No pneumothorax. Unremarkable soft tissues. Degenerative changes of the spine. IMPRESSION: 1. Developmentally diminutive left vertebral artery with likely chronic high-grade stenosis versus oc clusion of the distal V2, V3 and V4 segments. 2. Moderate luminal narrowing of the basilar and left posterior cerebral artery. 3. Otherwise unremarkable CTA of the head and neck. ACT 112: Negative or not required by law. The above report was generated using voice recognition software. It may contain grammatical, syntax o r spelling errors. Electronically signed by: Ga Bowles M.D. 03/01/2020 1:38 PM
[2020-03-01] MEDS ORDERED: ASPIRIN CHEW 324 MG PO STA (13:58)
--- NOTE | 2020-03-01 15:50 | History & Physical Report ---
Date of Service March 01, 2020 Assessment & Plan (1) Stroke-like symptoms: Suspect he is again having orthostasis but now having more localized symptoms to where he has arterial narrowing when his blood pressure decreases after prolonged sitting episodes. However certainly is prudent to rule out a new acute stroke to explain symptoms in the last 2 days, I do not suspect he is having multiple TIAs causing her symptoms given exertional nature that brings them on. No tPA indicated due to event > 6 hours from presentation NIH score: 0 Ix Monitor for arrhythmia on telemetry TSH - 0.[address] head -ill-defined hypodensities of left cerebellar hemisphere suggestive of age-indeterminate likely remote infarcts CTA head/neck -developmentally diminutive left vertebral artery with likely chronic high-grade stenosis versus occlusion of distal V2, V3 and V4 segments, moderate luminal narrowing of basilar and left posterior cerebral artery MRI brain w/o contrast Consult neurology Rx Aspirin 324mg PO given in ER, continue ASA 81mg PO daily Continue his usual lovastatin pending lipid panel in a.m. (2) Dizziness: Suspect his most recent dizziness is cerebellar ataxia related to hypoperfusion of this area due to vertebral artery stenosis. Once cleared from a stroke point of view and seen by neurology recommend orthostatics (3) Postural dizziness with presyncope: Prior history of this likely contributing towards above as described. (4) Hyperlipidemia: Lipid panel in a.m. Continue lovastatin pending results of this (5) Gastroesophageal reflux disease: Continue famotidine as needed (6) Prediabetes: HbA1c in a.m. (7) Glaucoma: Continue timolol eyedrops (8) Fuchs' corneal dystrophy: Continue prednisone eyedrops as prescribed, last day today of ofloxacin (9) DVT prophylaxis: Lovenox 40 mg SQ daily Admission and Anticipated Discharge Date Admission Date: March 01, 2020 History of Present Illness Chief Complaint: Strokelike symptoms Primary Care Provider: Keaton Marie MD Guerrero Su is a 74-year-old male who presents to the ER with strokelike symptoms. He has a 2-day history of vertiginous episodes with the right leg and arm coordination deficit which have occurred on exertion after prolonged sitting. This is occurred 5 times in the last 24 hours. On the occasions today he drove at [place] he got up and went 20 yards apparently had to sit down. He was not confused but he was unable to get out of the right words and his felt he was slobbering. He reports his dizziness is both lack of coordination and room spinning but does not feel it is lightheadedness. He has no known history of stroke or heart attack. Non-smoker. Prediabetes managed with diet. He reports a history of bad migraines with a headache lasting for hours to days but no extremity weakness or change in sensation associated with these. He reports disease got older he no longer gets any migr aines. 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 He has a longstanding history of intermittent lightheadedness on standing which is worse when he sits for long period of time. This was worked up [place] [address] Goff and was suspected to be due to orthostasis. He had a head up tilt test on July 2016 which was borderline positive orthostatic hypotension at that time. Echocardiogram was unremarkable other than mild aortic regurgitation. Allergies Allergy/AdvReac Type Severity Reaction Status Date / Time No Known Allergies Allergy Mild Unverified 03/01/20 13:15 Home Medications Home Medications Medication Instructions Recorded Confirmed Type blood sugar diagnostic #100 ea 02/14/19 02/13/20 Rx ferrous sulfate 325 mg (65 mg See Rx Instructions PO .COMPLEX 02/14/19 03/01/20 History iron) tablet tab lancets 33 gauge #100 ea 02/14/19 02/13/20 Rx lovastatin 20 mg tablet 20 mg PO .COMPLEX tab 09/02/19 03/01/20 History famotidine 20 mg tablet 20 mg PO BID PRN #180 tab 09/24/19 03/01/20 Rx fluticasone propionate 50 2 sprays INTNAS DAILY PRN gm 09/24/19 03/01/20 History mcg/actuation nasal spray,suspension Past Med/Surg History Medical History Allergic rhinitis (Acute) Dilated aortic root (Acute) Gastroesophageal reflux disease (Acute) Hyperlipidemia (Acute) Lower back pain (Acute) Migraine headache (Acute) Mitral valve insufficiency and aortic valve insufficiency (Acute) Surgical History History of cataract surgery History of colonoscopy Hx of LASIK History of corneal lasik on CCD Family History Father Heart disease Stroke syndrome Mother Alzheimer disease Brother Parkinsons disease Social History Smoking Status: Never smoker Second Hand Exposure: No; Do You Dip or Chew Tobacco: No; Hx Alcohol Use: No Hx Substance Use: No Preferred Language: Ghanaian Communication Ability: Effective Rooms Director Required: No Beliefs That Will Affect Care: None marital status: Current Living Situation: Spouse current occupational status: employed current occupation: [id number] vehicles for [employer] Other Information That Helps Us Care for You: No Feels Safe at Home: Yes Seatbelt Use: always Review of Systems Review of Systems: All systems reviewed & are unremarkable except as noted in HPI & below Physical Exam Constitutional: well developed and well nourished; no acute distress Eyes: + anicteric sclerae, PERRL and EOM intact bilaterally; no conjunctival abnormality ENMT: external ear and nose normal, oropharynx normal Neck: trachea midline, no thyromegaly Respiratory: normal respiratory effort, lungs clear to auscultation Cardiovascular: RRR, no murmur, no edema Gastrointestinal (Abdomen): normal bowel sounds, soft, nontender, no hepatosplenomegaly Musculoskeletal: no cyanosis or clubbing, extremities motor strength 5/5 Skin: no rashes, warm and dry Neurologic: moves all extremities and awake; no focal motor deficits and not confused Speech / Cognition: normal speech, no expressive aphasia, no receptive aphasia and normal cognition Motor/Sensory: no tremor, normal movement, no pronator drift and no asterixis Cranial Nerves: sense of smell intact, PERRL, normal accommodation, EOM intact bilaterally, normal facial strength, tongue midline, able to rotate head bilaterally, able to elevate shoulders bilaterally, no nystagmus and symmetric palate elevation Gait: no ataxic gait Coordination: normal [id number] test and normal [id number] test Psychiatric: A+Ox3, euthymic affect Genitourinary: no CVA tenderness Lymphatic: no cervical or axillary lymphadenopathy Results & Data Results & Data ([facility]) Vital Signs (Past 12 Hours) Vital Signs Temp Pulse Resp BP Pulse Ox 03/01/20 15:00 70 22 136/98 97 03/01/20 14:30 68 15 163/98 H 99 03/01/20 13:30 53 L 18 134/85 99 03/01/20 12:30 66 18 134/87 03/01/20 12:29 63 19 141/104 H 03/01/20 12:28 59 L 21 159/93 H 03/01/20 12:27 69 16 98 03/01/20 11:43 36.4 C L 69 16 144/[address] head/brain wo con IMPRESSION: 1. No acute intracranial hemorrhage, midline shift or acute territorial infarct. 2. Ill-defined hypodensities of the left cerebellar hemisphere are suggestive of age-indeterminate likely remote infarcts. CT angio neck with con, CT angio head w con IMPRESSION: 1. Developmentally diminutive left vertebral artery with likely chronic high- grade stenosis versus occlusion of the distal V2, V3 and V4 segments. 2. Moderate luminal narrowing of the basilar and left posterior cerebral artery. 3. Otherwise unremarkable CTA of the head and neck. ECG Indication: altered mental status Rate (beats per minute): 67 Rhythm: normal sinus Findings: no acute ischemic change Comparison ECG Date: from (October 01, 2019) Change: no significant change Code Status & VTE Plan Code Status Full as discussed with the patient and his VTE Prophylaxis Plan VTE Prophylaxis will be ordered: Yes PG Care Time/CCT Total # of Minutes Spent Total Time Spent with Patient: Total time spent is greater than 50% in coordination of care (as documented) at patient's floor/unit and/or counseling patient: Coding Level of Care Code 29145 OBS Care - Level 3 Diagnoses Stroke-like symptoms R29.90 Dizziness R42 Postural dizziness with presyncope R42; R55 Hyperlipidemia E78.5 Gastroesophageal reflux disease K21.9 Prediabetes R73.03 Glaucoma H40.9 Fuchs' corneal dystrophy H18.51 DVT prophylaxis Z29.9
[2020-03-01] MEDS ORDERED: FAMOTIDINE 20 MG TAB PO PRN (17:02)
[2020-03-01] MEDS ORDERED: FLUTICASONE PROPIONATE NA SPR 16 GM BTL NAE PRN (17:02)
[2020-03-01] MEDS ORDERED: PHARMACIST DISCHARGE MED REC CONSULT PRN (17:02)
[2020-03-01] MEDS ORDERED: LOVASTATIN 20 MG TAB PO SCH (18:00)
[2020-03-01] MEDS: OFLOXACIN 0.3% OP SOLN 5 ML BTL OPL SCH ×2 (19:04→21:06)
[2020-03-01] MEDS: prednisoLONE acetate 1% OP SUSP 5 ML BTL OPL SCH ×2 (19:05→21:07)
[2020-03-02] MEDS: prednisoLONE acetate 1% OP SUSP 5 ML BTL OPL SCH ×2 (08:07→13:45)
[2020-03-02 08:45] LABS: Basophils # (auto) 0.03 K/uL (0-0.2); Basophils % (auto) 0.4 %; Eosinophils # (auto) 0.22 K/uL (0-0.5); Eosinophils % (auto) 2.9 %; Hematocrit (blood only) 42.8 % (42-52); Hemoglobin 14.4 g/dL (14.0-18.0); Immature Granulocytes # (auto) 0.01 K/uL (0.00-0.02); Immature Granulocytes % (auto) 0.1 %; Lymphocytes # (auto) 1.89 K/uL (1.2-3.4); Lymphocytes % (auto) 25.3 %; Mean Corpuscular Hemoglobin 30.5 pg (25-34); Mean Corpuscular Hgb Conc 33.6 g/dL (32-36); Mean Corpuscular Volume 90.7 fL (80-100); Mean Platelet Volume 11.2 fL (7.4-10.4); Monocytes # (auto) 0.76 K/uL (0.11-0.59); Monocytes % (auto) 10.2 %; Neutrophils # (auto) 4.55 K/uL (1.4-6.5); Neutrophils % (auto) 61.1 %; Platelet Count 219 K/uL (130-400); RDW Coefficient of Variation 12.9 % (11.5-14.5); RDW Standard Deviation 43.1 fL (36.4-46.3); Red Blood Count 4.72 M/uL (4.7-6.1); White Blood Count 7.46 K/uL (4.8-10.8)
--- NOTE | 2020-03-02 08:59 | Neurology Consultation ---
Date of Consultation March 02, 2020 Assessment & Plan (1) Migraine headache: (2) Hyperlipidemia: (3) Prediabetes: (4) Stroke-like symptoms: Guerrero Su is a 74 yo man w/ PMH of migraines, known dilated aortic root, mitral and aortic valve insufficiency, hyperlipidemia, GERD, diabetes, history of iron deficiency anemia, glaucoma, Fuchs dystrophy and history of cataracts who presents to [facility] for subacute onset of difficulty ambulating when going from sitting to standing with associated dizziness and 5 episodes of associated right-sided weakness. brought him to the emergency department on 03/01 after having a similar episode while mowing the lawn that was also associated with difficulty speaking, right facial droop and drooling. # Possible TIA with right sided weakness/FP/slurred speech: Symptom localization: localizes more to the R MCA territory, can occasionally get thalamic aphasia (would localize to the left thalamus) Stroke mechanism: cardioembolic vs vessel to vessel embolus given suspected chronic left vertebral artery occlusion Stroke WorkUp: - CT head: several small hypodensities predominantly in the left cerebellum indicative of chronic infarcts, no other hypodensity or hemorrhage noted. - CTA head/neck: REGISTERED NURSING PROFESSOR, severe stenosis of the left vertebral artery with occlusion at the V3/V4 segment possibly from prior dissection, dominant right vertebral artery with small caliber basilar, moderate left REGISTERED NURSING PROFESSOR stenosis (P2 segment), minimal intracranial atherosclerosis - MRI brain: No acute infarct, chronic infarcts in the left more than right cerebellum, no hemorrhage or Chiari malformation noted - TTE: EF 65 to 70%, borderline LVH, grade 1 diastolic dysfunction, mild MR, mild TR - Telemetry: pending - A1c: pending - FLP: 77 - Troponin, TSH: negative, WNL Stroke Management: - Acute treatment: ASA - Continuous cardiac monitoring, loop recorder vs 30 day monitor on discharge - Vitals, Neurochecks, NIHSS per unit routine - BP parameters: SBP CAP 180, ok to restart home anti-hypertensives for permissive HTN - Obtain MRI brain to evaluate stroke burden - Complete ischemic stroke workup with TTE without bubble, A1c, fasting lipid panel - Consult speech, PT, OT for supportive management - Will drug and alcohol counsellor concerning stroke education, smoking cessation, healthy diet, physical activity, weight loss - Follow up with PCP for assistance with outpatient goals (BP <130/80, LDL <70, A1c <7) - Follow up in neurology clinic in 6-8 weeks (can be telehealth visit or with SUSY Bonner) Secondary Stroke Prevention: - Antiplatelet: ASA 81mg po daily/plavix 75mg daily x 21 days, then aspirin 81mg daily thereafter (enteric coated) - Anticoagulation: Not indicated at this time - Statin: Atorvastatin 40mg daily HTN: - BP parameters, as above - Ok to restart home medications with goal of lowering BP to normotension over next 3-4 days FEN/GI: - Diet: Beside dysphagia to clear patient for PO meds/Cardiac HH diet - Monitor lytes and replete PRN Glucose Control: - Sliding scale insulin and accuchecks per primary team to avoid hyperglycemia # Dizziness on standing: given the positional component of dizziness, suspect cardiac origin. Ddx includes arrhythmia vs diabetic dysautonomia, less likely vertebrobasilar insufficiency as his left vertebral artery occlusion appears chronic in nature (may have been 2/2 dissection, not clear from history) - TTE as above - loop recorder or 30 day monitor as above - outpatient tilt table testing to r/o dysautonomia - orthostatics while admitted - encourage 80-100 oz water daily, minimize caffeine/alcohol intake, 1g salt with each meal, consider compression stockings or abdominal binder Thank you for this interesting consult. Plan of care was discussed with primary team. Please call with any questions. Stable for discharge from neurological standpoint. (5) Dizziness on standing: History of Present Illness Attending Physician: Pooja Thompson, History of Present Illness Guerrero Su is a 74 yo man w/ PMH of migraines, known dilated aortic root, mitral and aortic valve insufficiency, hyperlipidemia, GERD, diabetes, history of iron deficiency anemia, glaucoma, Fuchs dystrophy and history of cataracts who presents to [facility] for subacute onset of difficulty ambulating when going from sitting to standing with associated dizziness and 5 episodes of associated right-sided weakness. brought him to the emergency department on 03/01 after having a similar episode while mowing the lawn that was also associated with difficulty speaking, right facial droop and drooling. In the ED, patient was afebrile, heart rate 144/80, heart rate 69, respiratory rate 16, satting 90% on room air. Labs notable for WBC 7.48, hemoglobin mildly low at 13.1 with MCV 89.1, platelets 29, electrolytes within normal, BUN mildly elevated 27, creatinine 1.09, glucose 106, INR 1.0, calcium low at 8.2, magnesium 2.1, LFTs within normal, troponin negative, TSH within normal, UA no infection. Imaging independently reviewed. CT head shows several small hypodensities predominantly in the left cerebellum indicative of chronic infarcts, no other hypodensity or hemorrhage noted. CTA head and neck notable for REGISTERED NURSING PROFESSOR, severe stenosis of the left vertebral artery with occlusion at the V3/V4 segment possibly from prior dissection, dominant right vertebral artery with small caliber basilar, moderate left REGISTERED NURSING PROFESSOR stenosis (P2 segment), minimal intracranial atherosclerosis. CXR no infection. On examination today, he reports that he has been getting transient dizziness described as lightheadedness upon standing for several months now. This is different than the more recent episodes that occurred when he is walking around or doing exercise and are associated with right-sided weakness and most recently with slurred speech and right facial droop. He denies taking any antiplatelets or anticoagulation at home. Denies any associated headache or aura symptoms with episodes. Allergies Allergy/AdvReac Type Severity Reaction Status Date / Time No Known Allergies Allergy Mild Unverified 03/01/20 13:15 Home Medications Home Medications Medication Instructions Recorded Confirmed Type blood sugar diagnostic #100 ea 02/14/19 02/13/20 Rx ferrous sulfate 325 mg (65 mg See Rx Instructions PO .COMPLEX 02/14/19 03/01/20 History iron) tablet tab lancets 33 gauge #100 ea 02/14/19 02/13/20 Rx lovastatin 20 mg tablet 20 mg PO .COMPLEX tab 09/02/19 03/01/20 History famotidine 20 mg tablet 20 mg PO BID PRN #180 tab 09/24/19 03/01/20 Rx fluticasone propionate 50 2 sprays INTNAS DAILY PRN gm 09/24/19 03/01/20 History mcg/actuation nasal spray,suspension Patient History Medical History Allergic rhinitis (Acute) Dilated aortic root (Acute) Fuchs' corneal dystrophy Gastroesophageal reflux disease (Acute) Hyperlipidemia (Acute) Lower back pain (Acute) Migraine headache (Acute) Mitral valve insufficiency and aortic valve insufficiency (Acute) Surgical History History of cataract surgery History of colonoscopy Hx of LASIK History of corneal lasik on CCD Family History Father Heart disease Stroke syndrome Mother Alzheimer disease Brother Parkinsons disease Social History Smoking Status: Never smoker Second Hand Exposure: No; Do You Dip or Chew Tobacco: No; Hx Alcohol Use: No Hx Substance Use: No Preferred Language: Yoruba Communication Ability: Effective Chief Radiation Therapist Required: No Beliefs That Will Affect Care: None marital status: Current Living Situation: Spouse current occupational status: employed current occupation: [id number] vehicles for [employer] Other Information That Helps Us Care for You: No Feels Safe at Home: Yes Seatbelt Use: always Review of Systems Review of Systems: 14 point review of systems completed and negative except as in HPI. Exam (Neuro) Physical Exam: General Exam: GEN: NAD, sitting down in examination bed. HEENT: No conjunctival injection, no rhinorrhea CV: RRR on monitor, no significant edema. PULM: Nonlabored respirations on room air. Neuro Exam: MS: Awake and Alert. Oriented to person, place, and date. Speech fluent and appropriate without dysarthria or paraphasic errors. Language intact including naming, comprehension, repetition. Cognition and memory grossly intact. Attention intact. No neglect. CN: Visual cuenca full, + blink to threat bilaterally. No extinction to double simultaneous stimuli. Normal fundoscopic exam. PERRLA OU. EOMI without nystagmus. Facial sensation intact to LT. Facial muscles full and symmetric. Hearing intact to conversation bilaterally. Uvula midline with symmetric palatal elevation. Shoulder shrug normal. Tongue midline. MOTOR: Normal bulk and tone. No pronator drift. BUE strength 5/5 at deltoids, biceps, triceps, wrist flexors and extensors, and hand grasp bilaterally. BLE strength 5/5 at iliopsoas, hamstrings, quadriceps, tibialis anterior, and gastrocnemius bilaterally. REFLEXES: 2+ at biceps, triceps, brachioradialis, 1+ patella, and absent Achilles bilaterally. Flexor plantar responses bilaterally. SENSORY: Intact to LT/vibration throughout, no extinction to double simultaneous stimuli. COORDINATION: No dysmetria or ataxia on [id number] bilaterally. Normal Michael bilaterally. GAIT: Deferred due to physical status. NIH STROKE SCALE 1A. Level of Consciousness (0-3) = 0 1B. LOC Questions (0-2) = 0 1C. LOC Commands (0-2) = 0 2. Best Horizontal Gaze (0-2) = 0 3. Visual Cuenca (0-3) = 0 4. Facial Palsy (0-3) = 0 5. Motor Arm Right (0-4) = 0 Left (0-4) = 0 6. Motor Leg Right (0-4) = 0 Left (0-4) = 0 7. Limb Ataxia (0-2) = 0 8. Sensory (0-2) = 0 9. Best Language (0-3) = 0 10. Dysarthria (0-2) = 0 11. Extinction and Inattention (0-2) = 0 NIHSS TOTAL = 0 Results & Data ([facility]) Vital Signs (Past 12 Hours) Vital Signs Temp Pulse Resp BP Pulse Ox 03/02/20 07:47 36.8 C 66 18 164/92 H 96 03/02/20 03:06 36.8 C 62 17 136/88 96 03/01/20 23:13 36.8 C 65 17 138/80 96 PG Care Time/CCT Total # of Minutes Spent Total Time Spent with Patient: Total time spent is greater than 50% in coordination of care (as documented) at patient's floor/unit and/or counseling patient: Coding Level of Care Code 50251 Initial Inpt Care Lvl 3 Diagnoses Migraine headache G43.909 Hyperlipidemia E78.5 Prediabetes R73.03 Stroke-like symptoms R29.90 Dizziness on standing R42
[2020-03-02] MEDS ORDERED: prednisoLONE acetate 1% OP SUSP 5 ML BTL OPR SCH (09:00)
[2020-03-02] MEDS ORDERED: ENOXAPARIN INJ 40 MG/0.4 ML SYR SQ SCH (09:00)
[2020-03-02] MEDS ORDERED: TIMOLOL MALEATE 0.25% OP SOLN 5 ML BTL OP SCH (09:00)
[2020-03-02] MEDS ORDERED: ASPIRIN 81 MG ECTAB PO SCH (09:00)
[2020-03-02 09:13] LABS: BUN Creatinine Ratio 22.3 (10-20); Calcium 9.1 mg/dl (8.5-10.1); Creatinine Clr Calc Pharmacy 63.1 ml/min; Est GFR (African American) 75.9; Est GFR (Non-African American) 65.5; Potassium 3.9 mmol/L (3.5-5.1)
--- NOTE | 2020-03-02 09:45 | XCELERA ---
[id number]___[id number]
--- NOTE | 2020-03-02 10:49 | Magnetic Resonance Report ---
MRI OF THE BRAIN WITHOUT IV CONTRAST CLINICAL HISTORY: Slurred speech. Right upper and lower extremity loss of coordination. COMPARISON STUDY: CT of the brain dated 03/01/2020. TECHNIQUE: MRI of the brain was performed utilizing various T1 and T2-weighted sequences in the axial , sagittal, and coronal planes. IV contrast was not administered for this examination. FINDINGS: Brain parenchyma: There is age-related involutional change. Chronic lacunar infarcts are noted in bot h cerebellar hemispheres. There is no hemorrhage or mass effect. There is no restricted diffusion to suggest acute ischemia. Tuttle-white matter differentiation is preserved. No extra-axial fluid collecti on is seen. The cerebellar tonsils are normal in configuration. Ventricles, sulci, and cisterns: Prominent secondary to involutional change. Pituitary and sella: Unremarkable. Intracranial vasculature: Normal flow voids are maintained at the skull base. Orbits: The bony orbits are grossly intact. Orbital contents are normal in appearance noting bilatera l ocular lens implants. Sinuses and mastoids: Clear. Calvarium: Unremarkable. Cervical cord: Partially visualized cervical spinal cord is normal in morphology and signal intensity . IMPRESSION: No acute intracranial abnormality. ACT 112: Negative or not required by law. Electronically signed by: Navi Lott M.D. 03/02/2020 10:48 AM
[2020-03-02 14:16] LABS: Lyme Ab IgG w/WB Rflx Negative (Negative)
[2020-03-02 14:17] LABS: Lyme Ab IgM w/WB Rflx Negative (Negative)
[2020-03-02] MEDS ORDERED: STROKE PATIENT DISCHARGE STA (15:20)
--- NOTE | 2020-03-02 15:23 | Discharge Summary ---
Date of Service March 02, 2020 Admission HPI Per Admitting Provider Guerrero Su is a 74-year-old male who presents to the ER with strokelike symptoms. He has a 2-day history of vertiginous episodes with the right leg and arm coordination deficit which have occurred on exertion after prolonged sitting. This is occurred 5 times in the last 24 hours. On the occasions today he drove at [place] he got up and went 20 yards apparently had to sit down. He was not confused but he was unable to get out of the right words and his felt he was slobbering. He reports his dizziness is both lack of coordination and room spinning but does not feel it is lightheadedness. He has no known history of stroke or heart attack. Non-smoker. Prediabetes managed with diet. He reports a history of bad migraines with a headache lasting for hours to days but no extremity weakness or change in sensation associated with these. He reports disease got older he no longer gets any migraines. 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 He has a longstanding history of intermittent lightheadedness on standing which is worse when he sits for long period of time. This was worked up [place] [address] Goff and was suspected to be due to orthostasis. He had a head up tilt test on July 2016 which was borderline positive orthostatic hypotension at that time. Echocardiogram was unremarkable other than mild aortic regurgitation. Principal Diagnosis Pt is doing well. He has had no recurrence of any of the sx that caused him to come in to the ED. No further dizziness, R UE/LE use issues, no word finding issues. Family is present and feels he has been interacting with them at his usual. He has eaten without issue. Pt denies fever, SOB, chest pain, abd pain, n/v/c/d, LE pain or swelling. Discharge Exam Constitutional WD/WN, vitals as above Eyes normal visual andujar by confrontation and + anicteric sclerae Neck normal visual inspection and trachea midline Respiratory normal respiratory effort, lungs clear to auscultation Cardiovascular Rate/Rhythm: regular rate and regular rhythm Gastrointestinal (Abdomen) Inspection/Auscultation: abdomen not distended Percussion/Palpation: abdomen soft; abdomen nontender Musculoskeletal Head/Neck/Chest: normocephalic and head atraumatic Skin no rashes, warm and dry Neurologic awake; not confused Speech / Cognition: normal speech Psychiatric A+Ox3, euthymic affect Discharge Data Allergies Allergy/AdvReac Type Severity Reaction Status Date / Time No Known Allergies Allergy Mild Unverified 03/01/20 13:15 Consultations 03/01/20 13:59 ED Decision to Admit Stat 03/01/20 17:02 Consult Case Management - Discharge Planning Routine Consult Neurology Routine Ordered Studies 03/01/20 12:02 CT angio head w con Stat CT angio neck with con Stat CT head/brain wo con Stat 03/02/20 09:21 MR brain wo con Routine Hospital Course (1) Stroke-like symptoms: Suspect he is again having orthostasis but now having more localized symptoms to where he has arterial narrowing when his blood pressure decreases after prolonged sitting episodes. However certainly is prudent to rule out a new acute stroke to explain symptoms in the last 2 days, I do not suspect he is having multiple TIAs causing her symptoms given exertional nature that brings them on. No tPA indicated due to event > 6 hours from presentation NIH score: 0 Monitor for arrhythmia on telemetry, none noted, however pt was at rest during most of monitoring TSH - 0.832 ECHO 65-70%, neg for structural issues CT head -ill-defined hypodensities of left cerebellar hemisphere suggestive of age-indeterminate likely remote infarcts CTA head/neck -developmentally diminutive left vertebral artery with likely chronic high-grade stenosis versus occlusion of distal V2, V3 and V4 segments, moderate luminal narrowing of basilar and left posterior cerebral artery--felt to be chronic and likely congenital by neurology MRI brain w/o contrast neg for acute Lyme neg, although if pt was in seroconversin window, this may not show as positive yet t/c testing in 1 month if ongoing sx No ongoing needs for ST UA neg Trop neg CBC, PRP WNL Rx Aspirin 324mg PO given in ER, continue ASA 81mg PO daily change to atorvastatin 40mg per neurology LDL 77, HDL 65 A1c pending 30 day event monitor given possibility of sx related to arrhythmia not noted while at rest on monitor during admission f/u neurology in 6-8 weeks Thought that pt possibly became dehydrated and with the vertebral stenosis, this was enough to cause stroke like sx (2) Dizziness: Suspect his most recent dizziness is cerebellar ataxia related to hypoperfusion of this area due to vertebral artery stenosis. Hx of + orthostatics (3) Postural dizziness with presyncope: Prior history of this likely contributing towards above as described. (4) Hyperlipidemia: Lipid panel and statin management as noted above (5) Gastroesophageal reflux disease: Continue famotidine as needed (6) Prediabetes: HbA1c in a.m. (7) Glaucoma: Continue timolol eyedrops (8) Fuchs' corneal dystrophy: Continue prednisone eyedrops as prescribed, last day today of ofloxacin (9) DVT prophylaxis: Lovenox 40 mg SQ daily Total Time Total Time Spent Total Time Spent (In Minutes): >30 Total Time Includes: Examination of the Patient, Discharge Planning, Medication Reconciliation, Communication With Other Providers and Other Discharge Plan Discharge Items Patient Disposition: Home - Self-Care Reason For Visit: STROKE-LIKE SYMPTOMS Discharge Diagnosis: Stroke like symptoms Condition on Discharge: Good Non-emergency contact: Primary Care Provider Call non-emergency contact if: you have any medication questions and your symptoms worsen Follow-up/Referrals: Lukas Marie MD [Primary Care Provider] - Donna Junior MD [Physician] - (6-8 weeks) Diet: Heart Healthy Diet Comment: low sugar, increased water intake, decreased caffeine intake Addtl Attending Provider Instructions: You should be contacted by case management in the next few days to set up your event monitor. If you do not hear from them by Tuesday afternoon, please call the hospital and ask to be connected to their office. Pending Studies at Discharge: Yes Studies:: A1c Stand-Alone Forms: Medications to Prevent Stroke, My [facility], Smoking Cessation Medications and DC Order Prescriptions: New prednisolone acetate 1 % Drops,Suspension 1 drp OPL QID Qty: 15 RF: 0 prednisolone acetate 1 % Drops,Suspension 1 drp OPR QAM Qty: 15 RF: 0 timolol maleate [Timoptic] 0.5 % Drops 1 drp ophthalmic (eye) QAM Qty: 15 RF: 0 atorvastatin 40 mg tablet 40 mg PO HS Qty: 30 RF: 0 aspirin 81 mg Tablet,Delayed Release (Dr/Ec) 81 mg PO QAM Qty: 30 RF: 0 Continued ferrous sulfate 325 mg (65 mg iron) tablet See Rx Instructions PO .COMPLEX RF: 0 (DME) OneTouch Verio test strips strip See Dose Instructions .ROUTE .MEDSUPPLY Qty: 100 RF: 5 (DME) lancets [OneTouch Delica Lancets] 33 gauge misc See Dose Instructions .ROUTE .MEDSUPPLY Qty: 100 RF: 5 fluticasone propionate 50 mcg/actuation spray,suspension 2 sprays INTNAS DAILY PRN (Reason: Allergy Symptoms) RF: 0 famotidine 20 mg tablet 20 mg PO BID PRN (Reason: GERD) Qty: 180 RF: 3 Discontinued lovastatin 20 mg tablet 20 mg PO .COMPLEX RF: 0 Discharge Orders: Discharge Order (Routine); Ordered 03/02/20 Ordered By: Pooja Thompson Admission Data Admit Date/Time: 03/01/20 15:45 Attending Provider: Pooja Thompson Admit Provider: Jonh Bosch Primary Care Provider: Lukas Marie Other Providers: Jonh Bosch ; Donna Junior Other Interventions: Discharge Summary Assessment (RN) Last Done: 03/02/20 15:43 DC Date/Time DO NOT enter until pt leaves facility: 03/02/20 16:24 Coding Level of Care Code D/C Day Management >30 mins Diagnoses Stroke-like symptoms R29.90 Dizziness R42 Postural dizziness with presyncope R42; R55 Hyperlipidemia E78.5 Gastroesophageal reflux disease K21.9 Prediabetes R73.03 Glaucoma H40.9 Fuchs' corneal dystrophy H18.51 DVT prophylaxis Z29.9
--- NOTE | 2020-03-02 15:56 | Pharmacy Report ---
Pharmacist Stroke Counseling - Date of Service March 02, 2020 - Scope: Pharmacy has been consulted to provide medication discharge counseling for this patient admitted with transient ischemic attack as per the Pharmacist Discharge Counseling for Stroke Patients Protocol. - Medications on Discharge: Home Medications Medication Instructions Recorded Confirmed ferrous sulfate 325 mg (65 mg See Rx Instructions PO .COMPLEX 02/14/19 03/01/20 iron) tablet tab lovastatin 20 mg tablet 20 mg PO .COMPLEX tab 09/02/19 03/01/20 fluticasone propionate 50 2 sprays INTNAS DAILY PRN gm 09/24/19 03/01/20 mcg/actuation nasal spray,suspension New Rx's Medication Instructions Recorded blood sugar diagnostic #100 ea 02/14/19 lancets 33 gauge #100 ea 02/14/19 famotidine 20 mg tablet 20 mg PO BID PRN #180 tab 09/24/19 aspirin 81 mg PO QAM #30 tab 03/02/20 atorvastatin 40 mg PO HS #30 tab 03/02/20 prednisolone acetate 1 drp OPL QID #15 ml 03/02/20 prednisolone acetate 1 drp OPR QAM #15 ml 03/02/20 timolol maleate [Timoptic] 1 drp OPHTHALMIC (EYE) QAM #15 ml 03/02/20 - Action: The above medications, specifically ones for stroke treatment/prophylaxis, have been reviewed in detail with the patient and/or patient petroleum products sales representative(s) prior to discharge. This includes indication, common adverse reactions, drug interactions, and medication administration. Medication counseling has been employed using the teach-back method to ensure understanding. - Outcome: The patient and/or patient petroleum products sales representative(s) have demonstrated understanding of the medications. Additional comments: * Discharge counseling provided by phone due to COVID-19 pandemic. Stroke/TIA cannot be ruled out. Therefore, aspirin being started and statin changed. * Patient sounds knowledgeable regarding medications. * Explained indication and potential adverse effects of Rx's. He has never taken aspirin before. Advised to monitor for s/sx bleeding/bruising. He was previously taking Aleve prn - advised against NSAID due to taking aspirin (incr' bleeding risk). He agrees to stop Aleve and use Tylenol if needed instead. * Previously taking lovastatin every other day (not due to intolerance; he apparently was trying to wean off medications). He denies any statin intolerance and has never been on atorvastatin. Explained atorvastatin is more potent. He agrees to take daily. * Patient with recent eye surgery - eye drops listed as "new", but patient was previously taking - advised him to continue to take as directed by eye doctor. Thank you for allowing pharmacy to be involved in the care of this patient. Please call [phone] with any additional questions
[2020-03-03 06:51] LABS: Estimated Average Glucose 126 mg/dl
--- NOTE | 2020-03-03 13:21 | Electrocardiogram Report ---
Test Reason : Blood Pressure : / mmHG Vent. Rate : 067 BPM Atrial Rate : 067 BPM P-R Int : 176 ms QRS Dur : 088 ms QT Int : 400 ms P-R-T Axes : 037 -27 017 degrees QTc Int : 422 ms Normal sinus rhythm Normal ECG When compared with ECG of 01-OCT-2019 08:18, No significant change was found Confirmed by Alejandro Goff ([id number]) on 03/03/2020 1:20:55 PM Referred By: REFERRED SELF Confirmed By:Alejandro Goff
== END 2020-03-02 16:24 | disposition home or self-care (01) ==
LOC: 2E 11:39 → ED 11:39 → SUATTDRO 15:45 → 2E 16:24